=== PATIENT | female | born 1950 | race Caucasian/White ===

== ENCOUNTER 2017-01-16 13:52 | Emergency (ER) | payer MEDICARE, OTHER ==
[2017-01-16 13:53] VITALS: BMI 25.1
[2017-01-16 14:06] VITALS: BP 124/76; PULSE 88; RESP 16; TEMP 97.8; O2SAT 98
--- NOTE | 2017-01-16 14:21 | C.PDOC ---
History Of Present Illness 66 year old female complains of itchy rash to the bilateral legs for the past few days. Patient notes her niece came to visit and has the same rash, now everyone in her family has the rash. Patient denies fever, chill, pain, or drainage. Time Seen by Provider: 01/16/17 14:05 Chief Complaint (Nursing): Abnormal Skin Integrity History Per: Patient History/Exam Limitations: no limitations Onset/Duration Of Symptoms: Days Current Symptoms Are (Timing): Still Present Quality Of Symptoms: Itching Severity: Mild Recent travel outside of the [place]: No Additional History Per: Patient Past Medical History Reviewed: Historical Data, Nursing Documentation, Vital Signs Vital Signs: Last Vital Signs Temp 97.8 F 01/16/17 14:00 Pulse 88 01/16/17 14:00 Resp 16 01/16/17 14:00 BP 124/76 01/16/17 14:00 Pulse Ox 98 01/16/17 14:51 - Medical History PMH: Anxiety, Arthritis, Gastritis (omeprazole), Hypercholesterolemia Surgical History: Endoscopy - [facility] Procedures CLOSED ENDOSCOPIC BIOPSY OF LARGE INTESTINE (06/25/14) LOCAL EXCIS BREAST LES (07/26/14) OTHER ENDOSCOPY OF SM INTEST (06/25/14) Family History: States: Unknown Family Hx - Social History Hx Tobacco Use: No Hx Alcohol Use: No Hx Substance Use: No - Immunization History Hx Tetanus Toxoid Vaccination: No Hx Influenza Vaccination: No Hx Pneumococcal Vaccination: No Review Of Systems Constitutional: Negative for: Fever, Chills Cardiovascular: Negative for: Chest Pain Respiratory: Negative for: Cough, Shortness of Breath Gastrointestinal: Negative for: Abdominal Pain Skin: Positive for: Rash (Itchy). Negative for: Other (Pain or drainage) Neurological: Negative for: Headache Physical Exam - Physical Exam Appears: Non-toxic, No Acute Distress Skin: Warm, Dry, Rash (scattered erythematous papules and scabs to the bilateral lower extremities, including feet and digits and few to the upper extremities.) Head: Atraumatic, Normacephalic Eye(s): bilateral: Normal Inspection Oral Mucosa: Moist Tongue: Normal Appearing, No Swelling Lips: Normal Appearing, No Swelling Throat: Normal, No Erythema Neck: Normal ROM Chest: Symmetrical Cardiovascular: Rhythm Regular, No Murmur Respiratory: Normal Breath Sounds, No Wheezing Extremity: Bilateral: Atraumatic, Normal ROM Neurological/Psych: Oriented x3, Normal Speech ED Course And Treatment O2 Sat by Pulse Oximetry: 98 (RA) Pulse Ox Interpretation: Normal Medical Decision Making Medical Decision Making: Hira shea scabies. Advise on treatment and to notify all household members to be treated. During ED evaluation patient is resting comfortably, and is in no acute distress. Patient was instructed to follow up with physician/clinic in 1- 2 days for further evaluation. Disposition Counseled Patient/Family Regarding: Diagnosis, Need For Followup, Rx Given - Disposition Disposition: HOME/ ROUTINE Disposition Time: 14:18 Condition: STABLE Additional Instructions: aplique crema en todas las reas afectadas y deje actuar manoj 8 a 14 horas, luego enjuague. Reaplicar en gi semana Trate a todos los afectados en gallardo hogar Gloria un seguimiento con gallardo mdico o clnica Prescriptions: Permethrin [Elimite] 60 gm TP ONCE 1 Days #1 cream..g. Instructions: Scabies (ED) Forms: [employer] (Palauan) Print Language: ALBANIAN - POA Present On Arrival: None - Clinical Impression Clinical Impression: Scabies exposure - Scribe Statement The provider has reviewed the documentation as recorded by the Scribe Melissa stanley All medical record entries made by the Scribe were at my direction and personally dictated by me. I have reviewed the chart and agree that the record accurately reflects my personal performance of the history, physical exam, medical decision making, and the department course for this patient. I have also personally directed, reviewed, and agree with the discharge instructions and disposition.
== END 2017-01-16 14:27 | disposition home or self-care (01) ==
LOC: C.ER 13:52
DX: Z20.7 Contact with and (suspected) exposure to pediculosis, acariasis and other infestations (principal)

== ENCOUNTER 2017-05-03 11:23 | Emergency (ER) | payer MEDICARE, OTHER ==
[2017-05-03 11:23] VITALS: BMI 25.1
[2017-05-03] MEDS ORDERED: Acetaminophen-Codeine 300/30 mg Tab PO STA (12:27)
[2017-05-03] MEDS ORDERED: Acetaminophen-Codeine 300/30 mg Tab PO ONE (12:46)
--- NOTE | 2017-05-03 12:51 | C.PDOC ---
History Of Present Illness 66 year old female presents to the ED for evaluation of right elbow pain which began after she twisted the area around 1 month ago. Patient states her pain is worse with movement. Patient is right-hand dominant. She denies fever, chills, or any other joint pain. Time Seen by Provider: 05/03/17 12:00 Chief Complaint (Nursing): Upper Extremity Problem/Injury History Per: Patient History/Exam Limitations: no limitations Onset/Duration Of Symptoms: Other (1 month ) Current Symptoms Are (Timing): Still Present Quality: "Pain" Exacerbating Factor(s): Movement Additional History Per: Patient Past Medical History Reviewed: Historical Data, Nursing Documentation, Vital Signs Vital Signs: Last Vital Signs Temp 98.3 F 05/03/17 13:20 Pulse 60 05/03/17 13:20 Resp 16 05/03/17 13:20 BP 125/76 05/03/17 13:20 Pulse Ox 98 05/03/17 13:20 - Medical History PMH: Anxiety, Arthritis, Gastritis (omeprazole), Hypercholesterolemia Surgical History: Endoscopy - [facility] Procedures CLOSED ENDOSCOPIC BIOPSY OF LARGE INTESTINE (06/25/14) LOCAL EXCIS BREAST LES (07/26/14) OTHER ENDOSCOPY OF SM INTEST (06/25/14) Family History: States: Unknown Family Hx - Social History Hx Tobacco Use: No Hx Alcohol Use: No Hx Substance Use: No - Immunization History Hx Tetanus Toxoid Vaccination: No Hx Influenza Vaccination: No Hx Pneumococcal Vaccination: No Review Of Systems Constitutional: Negative for: Fever, Chills Musculoskeletal: Positive for: Other (right elbow pain ) Physical Exam - Physical Exam Appears: Non-toxic, No Acute Distress Skin: Normal Color, Warm, Dry, No Other (gross cellulitis ) Cardiovascular: Rhythm Regular Respiratory: Normal Breath Sounds Gastrointestinal/Abdominal: Normal Exam, Soft Extremity: Normal ROM, Tenderness (to right lateral condyle), Capillary Refill ( less than 2 seconds ), No Swelling, No Other (palpable cord or asymmetry between arms ) Neurological/Psych: Oriented x3, Normal Speech, Normal Cognition, Normal Sensation ED Course And Treatment O2 Sat by Pulse Oximetry: 100 (on RA) Pulse Ox Interpretation: Normal Medical Decision Making Medical Decision Making: Assessment: Elbow pain Progress: Right elbow XR ordered and reviewed. Motrin PO and Tylebol/Codeine PO administered. Preliminary read of elbow XR is negative. On reassessment, patient is resting comfortably, showing no signs of distress and reports an improvement in her pain. Patient is stable for discharge with diagnosis of joint pain. She is advised to f/u wit her PMD within 1-2 days for further evaluation. Disposition Counseled Patient/Family Regarding: Studies Performed, Diagnosis, Need For Followup, Rx Given - Disposition Referrals: Russ Amato III, MD [Staff Provider] - Disposition: HOME/ ROUTINE Disposition Time: 13:18 Condition: STABLE Additional Instructions: follow up with your doctor in 2 days call to make an appointment take medications as prescribed return to ER if symptoms worsens or progress Prescriptions: Acetaminophen/Codeine [Tylenol/Codeine 300 MG/30 MG] 1 tab PO Q6H PRN #12 tab PRN Reason: Pain, Severe (8-10) Naproxen [Naprosyn] 500 mg PO BID PRN #16 tab PRN Reason: Pain, Moderate (4-7) Instructions: Joint Pain Forms: Gen Discharge Inst Occitan, [facility] (Occitan) Print Language: EAST TIMORESE - Clinical Impression Clinical Impression: Joint pain - Scribe Statement The provider has reviewed the documentation as recorded by the Scribe (Dina Nuñez) Provider Attestation: All medical record entries made by the Scribe were at my direction and personally dictated by me. I have reviewed the chart and agree that the record accurately reflects my personal performance of the history, physical exam, medical decision making, and the department course for this patient. I have also personally directed, reviewed, and agree with the discharge instructions and disposition.
[2017-05-03 13:38] VITALS: BP 125/76; PULSE 60; RESP 16; TEMP 98.3
--- NOTE | 2017-05-03 15:49 | RAD ---
PROCEDURE: Radiographs of the right elbow. HISTORY: pain COMPARISON: No prior. FINDINGS: BONES: There is no acute displaced fracture or bone destruction. Bone alignment and mineralization are normal. JOINTS: Normal. No osteoarthritis. SOFT TISSUES: Normal. JOINT EFFUSION: None. OTHER FINDINGS: None. IMPRESSION: Normal examination.
[2017-05-06 13:33] VITALS: O2SAT 100
== END 2017-05-03 13:30 | disposition home or self-care (01) ==
LOC: C.ER 11:23
DX: M25.521 Pain in right elbow (principal)

== ENCOUNTER 2018-08-02 09:53 | Outpatient (CLI) | payer OTHER | END 2018-08-02 09:54 | disposition home or self-care (01) | LOC: C.CTH 09:53 ==